=== PATIENT | female | born 1995 | race Caucasian/White ===

== ENCOUNTER 2017-06-17 16:34 | Emergency (ER) | payer MEDICAID ==
[~2017-06-17] VITALS: Ht 162.6 cm; Wt 60.0 kg
[2017-06-17 16:35] VITALS: BP 143/87; PULSE 74; RESP 20; TEMP 98.5; O2SAT 99
--- NOTE | 2017-06-17 16:40 | PD ---
Physical Exam Time Seen by Provider: 16:39 Narrative 21 y/o female here with left-sided dental pain for two weeks. Vital signs reviewed. Seen at triage desk. Awaiting bed placement. Data Data Last Documented VS Vital Signs Date Time Temp Pulse Resp B/P Pulse Ox O2 Delivery O2 Flow Rate FiO2 06/17/17 16:35 98.5 74 20 143/87 99 Room Air MDM Medical Record Reviewed: Yes Supervised Visit with RIGO: Chris Burnett Jun 17, 2017 16:40
[2017-06-17] MEDS ORDERED: CLIN1CAP6 PO (16:54)
[2017-06-17] MEDS ORDERED: IBUP800T23 PO (16:54)
--- NOTE | 2017-06-17 16:54 | PD ---
HPI . left lower jaw pain and swelling x 1 day Chief Complaint: Oral / Dental Pain or Problem Time Seen by Provider: 16:52 Travel History International Travel<30 days: No Contact w/Intl Traveler<30days: No Traveled to known affect area: No History of Present Illness HPI 21-year-old female who has a known tooth problem here with complaints of left lower jaw swelling and slight pain for 1 day. Patient says that she's had a history of abscess teeth and knows that she needs extractions, but never got it taken care of as the issue seemed to have resolved. All of a sudden today she developed some left lower jaw swelling and pain. She thinks that her abscessed tooth is returning. She denies any fever or chills. Denies any drainage from the site. PFSH Past Medical History ?: Unknown LMP: 2 DAYS AGO Social History Tobacco Use: No Allergies-Medications (Allergen,Severity, Reaction): Coded Allergies: Penicillin (Verified Allergy, Unknown, 06/17/17) Reported Meds & Prescriptions Reported Meds & Active Scripts Active Ibuprofen 800 Mg Tab 800 Mg PO TID Clindamycin (Clindamycin HCl) 300 Mg Cap 300 Mg PO TID Review of Systems General / Constitutional: No: Fever Eyes: No: Visual changes HENT: Positive: Dental Difficulties, No: Headaches Cardiovascular: No: Chest Pain or Discomfort Respiratory: No: Shortness of Breath Gastrointestinal: No: Abdominal Pain Genitourinary: No: Dysuria Musculoskeletal: No: Pain Skin: No Rash Neurologic: No: Weakness Psychiatric: No: Depression Endocrine: No: Polydipsia Hematologic/Lymphatic: No: Easy Bruising Physical Exam Narrative GENERAL: AAO x 3, no acute distress, Well-nourished, well-developed patient. SKIN: Warm and dry. No visible rashes or bruising. mild lower left sided facial edema HEAD: Normocephalic and atraumatic. EYES: No scleral icterus. No injection or drainage. EOM intact, PERRLA ENT: No nasal drainage noted. Mucous membranes pink. Airway patent. #18, mild gum swelling, but no drainable fluid collection, NECK: Supple, trachea midline. No JVD. no lymphadenopathy CARDIOVASCULAR: Regular rate and rhythm without murmurs, gallops, or rubs. RESPIRATORY: Breath sounds equal bilaterally. No accessory muscle use. No rhonchi or rales. GASTROINTESTINAL: visual inspection normal EXTREMITIES: No cyanosis or edema. BACK: No obvious deformity. NEURO: CN II-12 intact, circuit manager strength normal b/l, UE and LE 5/5, no focal deficits PSYCH: AAO x 3, normal affect. Data Data Last Documented VS Vital Signs Date Time Temp Pulse Resp B/P Pulse Ox O2 Delivery O2 Flow Rate FiO2 06/17/17 16:35 98.5 74 20 143/87 99 Room Air MDM Medical Decision Making Medical Screen Exam Complete: Yes Emergency Medical Condition: Yes Medical Record Reviewed: Yes Differential Diagnosis Dentalgia, oral abscess, tooth abscess, gingivitis Narrative Course 21-year-old female here with what appears to be an early abscess tooth. She is allergic to penicillin so I will use clindamycin. I advised her to follow-up with the dentist as soon as possible. Patient verbalized understanding of instructions, questions were answered, and thanked me for their care. I advised them if their condition worsens, please return to the nearest emergency room for further care. Diagnosis Primary Impression: Oral cellulitis Additional Impression: Tooth abscess Referrals: Dentist Patient Instructions: General Instructions Additional Instructions: Please return to emergency department if your symptoms return or worsen. Follow up with your primary care provider. Take medications as prescribed. See a dentist as soon as you return home. Med/Other Pt SpecificInfo: Prescription(s) given Scripts Ibuprofen 800 Mg [id number] Mg PO TID #21 TAB Prov:Nereida Crisostomo DO 06/17/17 Clindamycin 300 Mg [id number] Mg PO TID #21 CAP Prov:Nereida Crisostomo DO 06/17/17 Disposition: 01 DISCHARGE HOME Condition: Stable Dior Diop Jun 17, 2017 16:53
== END 2017-06-17 18:18 | disposition home or self-care (01) ==
LOC: NEPK 16:34
DX: K12.2 Cellulitis and abscess of mouth (principal); K04.7 Periapical abscess without sinus
CPT/HCPCS: 99283